=== PATIENT | female | born 1960 | race Caucasian/White ===

== ENCOUNTER → 2016-08-16 | Outpatient (CLI) | payer BC ==
[~2016-08-16] MED LIST: ASPIRIN E.C. 8181 MG PO; ATIVAN 1MG T1 MG/TAB PO; CLIMARA 0.1 PATCH.W1 TD; COLACE 100100 MG/CAP PO; CYANOCOBAL1000 MCG/M IM; ESTRACE0.1 MG/GM VG; EVOCLIN1% TOP; INDERAL 10MG10 MG PO; LAMICTAL 100MG100 MG PO; LAMICTAL XR100 MG PO; METROGEL GEL45 GM TP; MIRALAX PA17 GM/Dose PO; NEURONTIN300 MG/CAP PO; NORVASC 5MG5 MG/TAB PO; PREMARIN VAG42.5 GM VG; PROBIOTIC FORMU1 CAP PO; PROTONIX 40MG T40 MG PO; RETIN-A CR0.1 45GM TP; RITALIN 20M20 MG/TAB PO; SINGULAIR 110 MG/TAB PO; VITAMIN D1000 IU PO; VITAMIN D5000 IU; VITAMIND3 5000 PO; ZESTRIL40 MG PO
== END ==
LOC: BHSO 15:10
DX: F41.1 Generalized anxiety disorder (principal)

== ENCOUNTER → 2016-10-31 | Outpatient (CLI) | payer BC | LOC: BHSO 16:05 | DX: F41.1 Generalized anxiety disorder (principal) ==

== ENCOUNTER → 2016-12-26 | Outpatient (CLI) | payer BC | LOC: MC.RAD 11:18 | DX: Z12.31 Encounter for screening mammogram for malignant neoplasm of breast (principal) ==

== ENCOUNTER → 2017-01-10 | Outpatient (CLI) | payer BC | LOC: BHSO 16:11 | DX: F41.1 Generalized anxiety disorder (principal) ==

== ENCOUNTER → 2017-04-07 | Outpatient (CLI) | payer BC | LOC: BHSO 15:51 | DX: F31.73 Bipolar disorder, in partial remission, most recent episode manic (principal) ==

== ENCOUNTER → 2017-06-11 | Outpatient (CLI) | payer BC | LOC: BHSO 16:02 | DX: F31.73 Bipolar disorder, in partial remission, most recent episode manic (principal) ==

== ENCOUNTER 2018-01-30 10:09 | Day surgery (SDC) | payer BC ==
[~2018-01-30] VITALS: Ht 167.6 cm; Wt 92.4 kg
[2018-01-30] MEDS ORDERED: VYVANSE60 MG PO (10:36)
[2018-01-30 10:37] VITALS: BP 136/100; PULSE 74; TEMP 98.5
[2018-01-30 12:20] VITALS: BP 141/108; PULSE 69; TEMP 97.9
[2018-01-30 12:35] VITALS: BP 132/86; PULSE 63
[2018-01-30 12:50] VITALS: BP 118/80; PULSE 67
[2018-01-30 13:00] VITALS: BP 130/87; PULSE 67
[2018-01-30 13:15] VITALS: BP 149/92; PULSE 61
== END 2018-01-30 13:45 | disposition home or self-care (01) ==
LOC: SDCO 10:09
DX: K22.2 Esophageal obstruction (principal); R13.12 Dysphagia, oropharyngeal phase; K21.9 Gastro-esophageal reflux disease without esophagitis; Z79.899 Other long term (current) drug therapy; Z79.82 Long term (current) use of aspirin; F41.9 Anxiety disorder, unspecified; F32.9 Major depressive disorder, single episode, unspecified; R00.2 Palpitations
CPT/HCPCS: C1726; J2250; J2405; J3010; J7030

== ENCOUNTER → 2018-02-06 | Outpatient (CLI) | payer BC ==
[~2018-02-06] MED LIST changes: +VYVANSE60 MG PO
== END ==
LOC: COL.RAD 06:39
DX: K21.9 Gastro-esophageal reflux disease without esophagitis (principal)
CPT/HCPCS: A9541

== ENCOUNTER → 2018-04-20 | Outpatient (CLI) | payer BC | LOC: COL.RAD 08:10 | DX: R10.9 Unspecified abdominal pain (principal) ==

== ENCOUNTER → 2018-04-30 | Outpatient (CLI) | payer BC | LOC: COL.RAD 10:55 | DX: R10.11 Right upper quadrant pain (principal) | CPT/HCPCS: A9537 ==

== ENCOUNTER → 2019-06-08 | Outpatient (CLI) | payer BC | LOC: MC.RAD 08:00 | DX: Z12.31 Encounter for screening mammogram for malignant neoplasm of breast (principal) ==

== ENCOUNTER → 2020-02-11 | Outpatient (CLI) | payer BC | LOC: COL.RAD 08:07 | DX: K21.9 Gastro-esophageal reflux disease without esophagitis (principal); K59.00 Constipation, unspecified; K31.84 Gastroparesis; K58.9 Irritable bowel syndrome, unspecified | CPT/HCPCS: A9541 ==

== ENCOUNTER → 2020-07-14 | Outpatient (CLI) | payer BC | LOC: COL.VAS 10:54 | DX: I73.9 Peripheral vascular disease, unspecified (principal) ==

== ENCOUNTER → 2020-07-27 | Outpatient (CLI) | payer BC | LOC: COL.RAD 09:25 | DX: G62.89 Other specified polyneuropathies (principal) | CPT/HCPCS: A9585 ==

== ENCOUNTER → 2021-08-21 | Outpatient (CLI) | payer BC | LOC: MC.RAD 16:24 | DX: Z12.31 Encounter for screening mammogram for malignant neoplasm of breast (principal) ==

== ENCOUNTER → 2021-09-13 | Outpatient (CLI) | payer BC | LOC: COL.PUL 10:00 | DX: R06.02 Shortness of breath (principal) | CPT/HCPCS: J7674 ==

== ENCOUNTER → 2022-10-01 | Outpatient (CLI) | payer BC | LOC: MC.RAD 16:00 | DX: Z12.31 Encounter for screening mammogram for malignant neoplasm of breast (principal) ==